=== PATIENT | male | born 1965 | race Two or more races ===

== ENCOUNTER 2020-08-26 19:15 | Emergency (ER) | payer OTHER ==
[~2020-08-26] VITALS: Ht 185.4 cm; Wt 80.5 kg
[2020-08-26 19:17] VITALS: BP 145/73
[2020-08-26] MEDS ORDERED: CEFAZOLIN 1,000 MG IM ONE (20:00)
[2020-08-26] MEDS ORDERED: LIDOCAINE 2%, 20ML SQ ONE (20:00)
[2020-08-26] MEDS ORDERED: LIDOCAINE-MPF 2% ,5ML ONE (20:06)
[2020-08-26] MEDS ORDERED: CEFAZOLIN 1,000 MG ONE (20:06)
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
[2020-08-26] MEDS ORDERED: NEOSPORIN OINT. PKT 1 PACKET ONE (21:15)
--- NOTE | 2020-08-26 22:13 | NUR ---
Patient/Caregiver given discharge instructions and they have confirmed that they understand the instructions. Patient ambulatory with steady gait.
== END 2020-08-26 22:25 | disposition home or self-care (01) ==
LOC: ED 22:00
DX: S41.112A Laceration without foreign body of left upper arm, initial encounter (principal); W18.30XA Fall on same level, unspecified, initial encounter; Y93.89 Activity, other specified; Y92.89 Other specified places as the place of occurrence of the external cause; Y99.8 Other external cause status
CPT/HCPCS: 12032; 73080; 96372; 99284; J0690; J3490

== ENCOUNTER 2020-08-27 11:02 | Emergency (ER) | payer OTHER ==
[~2020-08-27] VITALS: Ht 185.4 cm; Wt 79.8 kg
[2020-08-27 11:12] VITALS: BP 123/81
--- NOTE | 2020-08-27 11:16 | NUR ---
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
[2020-08-27] MEDS ORDERED: NEOSPORIN OINT. PKT 1 PACKET ONE (11:37)
== END 2020-08-27 12:02 | disposition home or self-care (01) ==
LOC: ED 11:20
DX: S51.812D Laceration without foreign body of left forearm, subsequent encounter (principal); Z48.00 Encounter for change or removal of nonsurgical wound dressing; X58.XXXD Exposure to other specified factors, subsequent encounter
CPT/HCPCS: 99282